=== PATIENT | female | born 1960 | race Caucasian/White ===

== ENCOUNTER → 2024-03-08 | Outpatient (CLI) | payer OTHER ==
[~2024-03-08] MED LIST: AMLO5 PO; CARBLEV25 SL; OLIVE LEAF EXT250 MG PO; [UNRECOGNIZED DRUG - CODE] PO
== END | disposition home or self-care (01) ==
LOC: LAB SHORT 15:10 → LAB 15:10
DX: N39.0 Urinary tract infection, site not specified (principal)
CPT/HCPCS: 87086